=== PATIENT | male | born 1980 | race Caucasian/White ===

== ENCOUNTER 2023-09-17 08:39 | Outpatient (CLI) | payer OTHER ==
--- NOTE | 2023-09-17 09:17 | Sleep Patient Instructions ---
Sleep Center Visit Summary - Patient Visit Information Reason for Visit: Initial consult for evaluation of sleep disordered breathing and other sleep issues. - Patient Instructions Instructions Attached: Sleep Study Home Monitor Additional Instructions: You will be completing a sleep study, either an in-lab polysomnography (PSG) or home sleep study (HST). You will follow-up in the sleep care office after the sleep study is completed to hear the results and talk about therapy, if needed. You will be called by our office staff to schedule this appointment, but you may contact us with any questions. - Clinic Information Contact: [facility] [address] [place] [address] [email or web address] T: [phone]
--- NOTE | 2023-09-17 09:22 | SLEEP CARE CONSULTATION ---
Information from patient questionnaire entered by Teresa Acosta. I have reviewed and concur with the information entered by Teresa Acosta. This document represents the service I personally performed and the decisions made by me, Jory Lowe ARNP. History of Present Illness Service Date and Time: 09/17/2023 0839 Reason for Visit: New patient Chief Complaint: reports: Unrefreshed sleep, Snoring, Excessive daytime sleepiness, Observed pauses in breathing, Fatigue, Frequent awakenings at night Date of Onset: 15YRS Usual bedtime: 9PM Time it takes to fall asleep: MIN Snores at night: Yes Observed to quit breathing while asleep: Yes Sleeps alone due to snoring: Yes Number of times waking at night: EVERY NIGHT @2-3AM Reasons for waking at night: reports: Snoring, Gasping for air, Other (UNKNOWN) Toss, Turn, or Twitch while sleeping: Yes (once a week has a "jolt" that will wake him up) Recalls having dreams: Yes Usually gets out of bed at: 6AM; weekends 8 AM Feels refreshed in the morning: No Morning headache: No Sleepy or fatigued during the day: Yes (fights to stay awake at meetings during the day) Ever fallen asleep while driving: Yes (drowsy driving; no accidents) Takes day naps: Yes (rarely) Dreams during day naps: No Prior sleep studies: No Additional HPI information: I had the pleasure of seeing JANESSA MENA today regarding the possibility of him having a sleep disorder. His current complaints are unrefreshed sleep, snoring, excessive daytime sleepiness, observed pauses in breathing, fatigue and frequent night awakenings. He says he snores "horribly" and his has complained. He states he wake ups between 2 AM and 3:30 AM every morning for no reason and cannot go back to sleep, with his heart racing. His has noted that he sounds like he is trying to catch his breath. He falls asleep "almost instantly" when his head hits the pillow. He has had a few times even as often as once a week where he would wake up with a jolt, like his whole body is twitching, no apparent reason. He does not wake up feeling rested. He states if he sits down or is sedentary he gets drowsy and may fall asleep. He usually stays pretty busy and rarely naps during the day. He says his father has bad sleep apnea and uses a PAP machine. He says he is really frustrated with himself that he is annoying his with his snoring at night. They often sleep separately because of the snoring. He would also like to get a good night sleep and be able to sleep through the night for more than 4 to 5 hours. - Parasomnia Symptoms Ever been unable to move upon waking from sleep: No Walks in sleep: No Talks in sleep: No Ever acted out dreams in sleep: Yes (jumped out of bed when woke up a couple times; thought someone was comingin) Ever felt weak in the knees when startled or emotional: No Bothered by creepy, crawly, restless sensations in legs: Yes (occasionally, when sitting at work or laying in bed) Problems with memory or concentration: Yes (both) Subjective Initial [place] Sleepiness Scale score: 14 (09/14/23) Past Medical History Past Medical History: reports: Arthritis, GERD Social History The patient's occupation is a [employer]. Patient is and lives in . Have you smoked in the past 12 months: No Alcohol use: Yes Alcohol amount and frequency: 6PACK ONCE A WEEK Caffeine use: Yes Caffeine amount and frequency: 2CUPS DAILY Family History Family history of sleep disordered breathing: Yes Family Hx Sleep Apnea: Father: Snoring, Sleep apnea - Treated Allergies and Home Medications Known drug allergies: No Drug allergies reviewed: Yes Home medication list reviewed: Yes Allergy and home medication list: Allergies No Known Drug Allergies Allergy (Verified 09/16/23 12:48) Home Medications Medication Instructions Recorded Confirmed Last Taken Type Esomeprazole Magnesium [Nexium] See Rx Instructions .ROUTE .COMPLEX 09/17/23 09/17/23 Unknown History Review of Systems Weight gain over past 5 years: 10 Cardiovascular: denies: high blood pressure Respiratory: reports: shortness of breath, wheeze, sputum production Gastrointestinal: reports: heartburn, diarrhea, abdominal pain Neurological: reports: gait or balance problems. denies: headaches Ear/Nose/Throat: reports: nasal congestion, dry mouth/throat, wisdom teeth removed. denies: tonsillectomy Immunologic: reports: sneezing, rash, itching Physical Exam Vital signs obtained and entered by: TERESA Lozoya MA Blood Pressure: 128/70 (LEFT ARM) Cuff size: regular Heart Rate: 68 O2 Saturation: 96 Height: 6 ft 0.5 in Weight: 237 lb 12.8 oz (with clothes on) Body Mass Index: 31.8 BMI Classification: Obese Neck circumference: 17.25 Mouth and throat: narrow oropharynx Soft palate: long Hard palate: normal Uvula: normal Uvula visualization: 25% Mallampati Class III Tongue: enlarged in size with teeth robles on lateral edges Tonsils: 1+ Neck: normal w/o lymphadenopathy or thyromegaly Heart: regular rate and rhythm Lungs: clear bilaterally Impression and Plan 1. Suspected Obstructive Sleep Apnea-Hypopnea Syndrome, as suggested by a history of loud and irregular snoring, observed cessation of breath while asleep, gasping or choking in sleep, frequent awakening during the night, unrefreshed sleep, cognitive impairment, and excessive daytime sleepiness. Narrow oropharynx and obesity are common predisposing factors for obstructive sleep apnea-hypopnea syndrome. I recommend proceeding to polysomnography to confirm the diagnosis and to assess severity. If the patient has significant sleep disordered breathing, a manual CPAP titration study will also be performed to find the optimal treatment pressure. I informed the patient of what the sleep studies involve and after some discussion, obtained agreement to proceed. The pathophysiology of obstructive sleep apnea-hypopnea syndrome was discussed with the patient and health risks of cardiovascular and cerebrovascular disease if not treated. Risks of drowsy driving discussed in detail and patient advised to avoid long distance driving and to stock puller at the first sign of drowsiness. Patient agreed to plan. * Schedule polysomnography +- manual CPAP titration study and return in 1-2 weeks after the study to discuss result and initiate therapy. * Avoid long distance driving or driving when feeling sleepy. * Avoid alcohol, sedative and muscle relaxant around bedtime. * Attempt to lose weight. * Review instructions provided by trained office staff on how to prepare for the sleep study. * Return for follow-up after sleep study completed. Counseling Topics: Weight loss health impact Plan: PSG/HST Visit Type: In Office Time Spent with Patient (minutes): 30 Provider Statement: I spent 100% of the Face to Face Visit with the patient with greater than 50% spent counseling the patient and coordination of care.
[2023-09-17 09:23] VITALS: BP 128/70; O2SAT 96
== END 2023-09-17 08:40 | disposition home or self-care (01) ==
LOC: SC 08:39
PROVIDERS: ATTEND Nurse Practitioner Family
DX: R06.83 Snoring (principal); R06.81 Apnea, not elsewhere classified; G47.8 Other sleep disorders; R41.89 Other symptoms and signs involving cognitive functions and awareness; G47.10 Hypersomnia, unspecified; E66.9 Obesity, unspecified; Z68.31 Body mass index [BMI] 31.0-31.9, adult
CPT/HCPCS: 99203; 99212

== ENCOUNTER 2023-10-01 08:47 | Outpatient (CLI) | payer OTHER | END 2023-10-01 08:48 | disposition home or self-care (01) | LOC: SC 08:47 | PROVIDERS: ATTEND Nurse Practitioner Family | DX: G47.33 Obstructive sleep apnea (adult) (pediatric) (principal); R09.02 Hypoxemia; E66.9 Obesity, unspecified; Z68.32 Body mass index [BMI] 32.0-32.9, adult | CPT/HCPCS: 95806 ==

== ENCOUNTER 2023-10-07 08:50 | Outpatient (CLI) | payer OTHER ==
--- NOTE | 2023-10-07 09:10 | Sleep Patient Instructions ---
Sleep Center Visit Summary - Patient Visit Information Reason for Visit: Sleep study follow-up - Patient Instructions Instructions Attached: CPAP Additional Instructions: You are being started on CPAP therapy with pressure setting at 4-15 cmH2O. You w ill need to call the sleep care office to set up your follow up once you have your APAP machine and we will schedule a visit to check compliance and response to therapy at that time. You may call the office with any concerns about pressure feeling too low or too much for adjustment, if needed. You should contact DME supplier for any questions or concerns about mask or equipment. Please call office to schedule a follow up appointment in the sleep care office one month after obtaining new device. - Clinic Information Contact: [facility] [address] [place] [address] [email or web address] T: [phone]
--- NOTE | 2023-10-07 09:14 | SLEEP CARE CONSULTATION ---
Information from patient questionnaire entered by Teresa Acosta. I have reviewed and concur with the information entered by Teresa Acosta. This document represents the service I personally performed and the decisions made by me, Jory Lowe ARNP. History of Present Illness Service Date and Time: 10/07/2023 0850 Initial [place] Sleepiness Scale score: 14 (09/14/23) Current [place] Sleepiness Scale score: 19 (10/07/23) Additional HPI information: JANESSA MENA returns for follow up and results of the recently performed home sleep study. The sleep study showed moderate obstructive sleep apnea with an average AHI of 18.7 and jacqui oxygen saturation of 88%. I explained the pathophysiology behind obstructive sleep apnea. We then spent quite a bit of time discussing different treatment options. For mild obstructive sleep apnea, surgery and oral appliance are alternatives to nasal CPAP therapy but in moderate or severe cases, nasal CPAP is the most effective and reliable treatment. Because apnea is primarily in supine position, then positional management therapy could be effective. Methods discussed such as positioning with pillows, using a T-shirt with tennis balls in the back or commercial products that have a pillow format on back to prevent supine sleep. I reviewed the impact of weight changes on sleep apnea and strongly recommended losing weight. After some discussion, the patient opted to go with the nasal CPAP therapy. Nasal autoCPAP set at 4-15 cmH20 will be ordered with rationale explained. A manual titration study will be ordered if unable to find optimal pressure with office adjustments. I explained how CPAP machine works and what to expect when using the machine. Using CPAP every night in order to get used to it was emphasized. Patient advised to put CPAP mask on before getting into bed so as not to fall asleep without CPAP. To assist acclimation to CPAP use, it could also be used for a short time during day while reading or watching TV. The patient was instructed to call the CPAP supplier to discuss any mechanical problem that may occur. If the mask given is uncomfortable or is difficult to keep on through the night even with adjustment, contact the CPAP supplier as many will replace with another mask style if notified before 30 days. If snoring or perceives is not getting enough air or too much air from the machine, notify this office. Patient counseled not drink alcohol less than 4 hours before bedtime as it can increase snoring and apnea. Patient was cautioned about risks of drowsy driving until sleepiness symptoms resolve. Patient denies drowsy driving. Sleep Study - Results Type of Sleep Study: Home sleep study (COMPLETED 10/01/23) Prior sleep studies: No Polysomnography/Home Sleep Study results: Physician Impression: The quality of the study is good. The length of the study is adequate (> 240 minutes). Please also see the tabulated and graphic data. 1. Obstructive Sleep Apnea-Hypopnea (ICD-10 G47.33), moderate, with an AHI of 18.7/hr and jacqui SaO2 of 88%. During the study, the patient had 90 apneas (90 obstructive, 0 central, 0 mixed) and 51 hypopneas. The longest episode lasted 88.5 seconds. The respiratory events occurred almost exclusively during supine sleep (supine AHI was 43.3 and non-supine, 2.22). 2. Hypoxemia (ICD-10 R09.02), mild, with the lowest oxygen saturation of 88 % and 1.4 minutes with SaO2 under 90%. Baseline oxygen saturation was normal (Average oxygen saturation was 93%). Allergies and Home Medications Known drug allergies: No Drug allergies reviewed: Yes Home medication list reviewed: Yes (no changes) Allergy and home medication list: Allergies No Known Drug Allergies Allergy Review of Systems Review of systems same as previous: Yes (NO CHANGE) Physical Exam Vital signs obtained and entered by: TERESA Lozoya MA Blood Pressure: 145/86 (RIGHT ARM) Cuff size: regular Heart Rate: 85 O2 Saturation: 98 Height: 6 ft 0.5 in Weight: 225 lb Body Mass Index: 30.1 BMI Classification: Obese Impression and Plan 1. Obstructive Sleep Apnea-Hypopnea Syndrome, moderate, with lowest oxygen saturation of 88%. Obviously this is the cause of the patients symptoms of unrefreshed sleep, and excessive daytime sleepiness. Positive pressure therapy could benefit gastric reflux. As mentioned above, the patient will be started on nasal autoCPAP therapy with pressure set at 4-15 cmH2O. A manual titration study will be completed if unable to find optimal treatment pressure with office adjustments. Compliance guidelines also reviewed. A copy of compliance guidelines will be given for reference at check out. Because the apnea is more severe supine, I instructed to avoid sleeping supine using pillow positioning until able to start CPAP use. 2. Obesity, unspecified. Currently patients BMI is 30.1. Obesity increases the risk of apnea, CPAP pressure requirements and overall health risks especially cardiovascular and diabetes. Thus patient is advised to lose weight. * Nasal auto CPAP therapy, pressure at 4-15 cm H2O. * Attempt to lose weight. * Avoid alcohol consumption near bedtime. * Avoid supine sleep until using CPAP. * The patient is again cautioned about driving until sleepiness completely resolves. * Return one month after CPAP obtained. I will assess response to therapy and compliance at that time. Counseling Topics: Weight loss health impact Prescriptions: Auto CPAP Plan: Compliance visit with new device Visit Type: In Office Time Spent with Patient (minutes): 20 Provider Statement: I spent 100% of the Face to Face Visit with the patient with greater than 50% spent counseling the patient and coordination of care.
[2023-10-07 09:16] VITALS: BP 145/86; O2SAT 98
== END 2023-10-07 08:51 | disposition home or self-care (01) ==
LOC: SC 08:50
PROVIDERS: ATTEND Nurse Practitioner Family
DX: G47.33 Obstructive sleep apnea (adult) (pediatric) (principal); E66.9 Obesity, unspecified; Z68.30 Body mass index [BMI] 30.0-30.9, adult
CPT/HCPCS: 99212; 99213

== ENCOUNTER 2024-04-18 09:48 | Outpatient (CLI) | payer OTHER ==
--- NOTE | 2024-04-18 10:07 | Sleep Patient Instructions ---
Sleep Center Visit Summary - Patient Visit Information Reason for Visit: First compliance with CPAP follow-up - Patient Instructions Additional Instructions: You were here for follow up of CPAP therapy. You will be continued on CPAP therapy with pressure at 6-7 cmH2O. You should follow up with sleep care in 3 months. You may contact us sooner for any questions or concerns. - Clinic Information Contact: [facility] [address] [place] [address] [email or web address] T: [phone]
--- NOTE | 2024-04-18 10:12 | SLEEP CARE CONSULTATION ---
Information from patient questionnaire entered by Teresa Acosta. I have reviewed and concur with the information entered by Teresa Acosta. This document represents the service I personally performed and the decisions made by me, Jory Lowe ARNP. History of Present Illness Service Date and Time: 04/18/2024947 Previous diagnosis: Moderate, Obstructive Sleep Apnea-Hypopnea Syndrome AHI: 18.7 (on 10/01/23) Reason for follow up: first compliance Equipment type: CPAP (RESMED Airsense 11, S/U 10/28/2023) Equipment obtained from: Other ([facility], getting supplies) Mask style: Full face Mask brand: [id number] [id number] Backup mask available: No Last cushion change: over 30 days Prior sleep studies: No Type of Sleep Study: Home sleep study (COMPLETED 10/01/23) HPI additional information: JANESSA MENA was diagnosed to have moderate, AHI 18.7, obstructive sleep apnea- hypopnea syndrome and returned today for CPAP therapy first compliance follow- up. Sleep Study - Results Type of Sleep Study: Home sleep study (COMPLETED 10/01/23) Prior sleep studies: No CPAP Compliance Data - Data Reviewed with Patient Average duration of nightly device use: 7 HRS 33 MINS Compliance rate %: 93 (10/28/23-11/26/23) Current pressure setting (cmH2O): 5-6 Average residual AHI: 2.0 Central apnea: 0.6 Obstructive apnea: 0.6 Hypopnea: 0.7 Average large leak: 0.5 L/min Subjective Missed days of use due to: reports: travel Patient concerns: reports: mask discomfort (not bad, just needs adjustment), air blowing in eyes (occasional), condensation in mask/hose. denies: aerophagia, mask leak noise, nasal congestion, dry mouth, nose, throat, epistaxis Observed to snore while using device: Yes (occasionally) Current pressure setting perceived as: too low (with ramp starting pressure at 4 cmH2O) On therapy, patient: reports: sleeping better, awakening more refreshed, being more awake and alert during the day, more rested overall. denies: drowsiness while driving Initial [place] Sleepiness Scale score: 14 (09/14/23) Current [place] Sleepiness Scale score: 9 (04/18/24) Allergies and Home Medications Known drug allergies: No Drug allergies reviewed: Yes Home medication list reviewed: Yes (no changes) Allergy and home medication list: Allergies No Known Drug Allergies Allergy (Verified 04/17/24 09:19) Review of Systems Review of systems same as previous: Yes (NO CHANGE) Physical Exam Vital signs obtained and entered by: TERESA Lozoya MA Blood Pressure: 156/93 (RIGHT ARM) Cuff size: long Heart Rate: 103 O2 Saturation: 98 Height: 6 ft 0.5 in Weight: 239 lb 9.6 oz Body Mass Index: 32.0 BMI Classification: Obese Impression and Plan 1. Obstructive Sleep Apnea-Hypopnea Syndrome, moderate, with good treatment compliance and good apnea control. On CPAP therapy, the patient has better sleep quality and is more rested overall. Patient has adjusted his pressure and it is now set at 6-7 cmH2O. It does appear to be working well to control his sleep apnea adequately at this setting and will be continuing with the CPAP set at 6-7 cmH2O. He does feel like the pressure is too low when it is starting 4 cmH2O. He says he would like to just have it start at set pressure, so I will turn off the ramp pressure. Patient's apnea severity and rationale for treatment to reduce apnea, improve sleep quality and reduce cardiovascular and cerebrovascular events was reviewed. I also reviewed the benefit of consistent device use of CPAP for gastric reflux. 2. Obesity, unspecified. Currently patients BMI is 32. Obesity increases the risk of apnea, CPAP pressure requirements and overall health risks especially cardiovascular and diabetes. Thus patient is advised to lose weight. * Continue auto CPAP pressure to 6-7 cmH2O * Notify me if snoring with mask or feeling that the pressure is too much or too little * Attempt to lose weight * Call this office if any problems using CPAP * Return for follow up in 3 months, or sooner if concerns arise Continue with device pressure at (cmH2O): 6-7 Counseling Topics: Spare mask, Weight loss health impact Follow up with Sleep Care in: 3 months Visit Type: In Office Time Spent with Patient (minutes): 20 Provider Statement: I spent 100% of the Face to Face Visit with the patient with greater than 50% spent counseling the patient and coordination of care.
[2024-04-18 10:22] VITALS: BP 156/93; O2SAT 98
== END 2024-04-18 09:49 | disposition home or self-care (01) ==
LOC: SC 09:48
PROVIDERS: ATTEND Nurse Practitioner Family
DX: G47.33 Obstructive sleep apnea (adult) (pediatric) (principal); E66.9 Obesity, unspecified; Z68.32 Body mass index [BMI] 32.0-32.9, adult
CPT/HCPCS: 99212; 99213